=== PATIENT | female | born 1940 | race Caucasian/White ===

== ENCOUNTER 2017-06-11 06:27 | Day surgery (SDC) | payer MEDICARE, OTHER ==
[~2017-06-11] VITALS: Ht 147.3 cm; Wt 56.9 kg
[2017-06-11] VITALS (9 sets, daily range): BP systolic 103–121; BP diastolic 47–63; PULSE 80–92; RESP 10–16; O2SAT 93–99
[~2017-06-11 06:27] MED LIST: Clindamycin 900 mg/50 mL D5W IV SCH; MULT-1018 PO; TAMO10TA4 PO; calcium
[2017-06-11] MEDS ORDERED: Phenylephrine/NS 100 mCg/mL 10 mL Syringe IVPUSH ONE (06:28)
[2017-06-11] MEDS ORDERED: Propofol 10,000 mCg/mL 20 mL Inj ONE (06:28)
[2017-06-11] MEDS ORDERED: Glycopyrrolate 0.2 MG/ML 1mL Inj ONE (06:28)
[2017-06-11] MEDS ORDERED: fentaNYL-PF 50 mCg/mL 2 mL Inj ONE (06:28)
[2017-06-11] MEDS ORDERED: EPHEDrine/NS 5 mg/mL 5 mL Syringe ONE (06:28)
[2017-06-11] MEDS ORDERED: Neostigmine 1 mg/mL 10 mL Inj ONE (06:28)
[2017-06-11] MEDS ORDERED: HYDROmorphone 1 mg/mL Inj ONE (06:28)
[2017-06-11] MEDS ORDERED: Ondansetron 2 mg/mL 2 mL Inj ONE (06:28)
[2017-06-11] MEDS ORDERED: Rocuronium 10 mg/mL 5 mL Inj ONE (06:28)
[2017-06-11] MEDS: Lactated Ringer's 1,000 ML IV SCH ×2 (06:42→08:29)
[2017-06-11] MEDS ORDERED: Lactated Ringer's 500 ML IV PRN (08:01)
[2017-06-11] MEDS ORDERED: Lactated Ringer's 1,000 ML IV SCH (08:01)
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
[2017-06-11] MEDS ORDERED: Phenylephrine 10,000 mCg/mL Inj IVPUSH PRN (08:05)
[2017-06-11] MEDS ORDERED: HYDROmorphone 1 mg/mL Inj IVPUSH PRN (08:05)
[2017-06-11] MEDS ORDERED: Dexamethasone 4 mg/mL Inj IVPUSH PRN (08:05)
[2017-06-11] MEDS ORDERED: EPHEDrine Sulfate 50 mg/mL Inj IVPUSH PRN (08:05)
[2017-06-11] MEDS ORDERED: Ondansetron 2 mg/mL 2 mL Inj IVPUSH PRN (08:05)
[2017-06-11] MEDS ORDERED: Bacitracin 50,000 unit Inj ONE (08:23)
[2017-06-11] MEDS ORDERED: Bacitracin 50,000 unit Inj IRRIGATION ONE (08:59)
[2017-06-11] MEDS: fentaNYL-PF 50 mCg/mL 2 mL Inj IVPUSH PRN ×2 (10:30→10:42)
[2017-06-11] MEDS ORDERED: oxyCODONE-Acetamin 5-325 mg Tablet PO PRN (11:05)
--- NOTE | 2017-06-11 17:50 | PCM.ANEP1 ---
Post Anesthesia PACU Phase 1 Assessment Vital Signs Vital Signs Date Time Temp Pulse Resp B/P Pulse Ox O2 Delivery O2 Flow Rate FiO2 06/11/17 11:52 86 16 121/57 99 Room Air 06/11/17 11:05 36.5 81 11 104/52 99 Room Air 06/11/17 11:00 80 14 107/50 99 Room Air 06/11/17 10:45 36.5 82 10 103/47 93 Room Air 06/11/17 10:35 86 15 111/55 94 Room Air 06/11/17 10:30 88 14 111/54 95 Room Air 06/11/17 10:25 92 12 109/55 96 Room Air 06/11/17 10:20 36.4 88 11 111/48 96 Room Air Level of Alertness: Awake, talking Pain: No Nausea or Vomiting: No CV Function & Hydration Stable: Yes Airway Device: None Oxygen Delivery: Room Air Lungs: Normal Air Movement PACU Phase 2 Assessment Complications: No Follow up Care: N/A Patient Instructions Provided: N/A Fazal Delaney MD Jun 11, 2017 17:50
--- NOTE | 2017-06-12 16:42 | OP ---
[address] [address] OPERATIVE REPORT PATIENT: MELLISSA RAYGOZA : 1940 MR#: [id number] ADMIT: 06/11/2017 JOB ID: [id number] DATE OF SURGERY: 06/11/2017 PREOPERATIVE DIAGNOSIS(ES): 1. History of right breast cancer, status post breast reconstruction with casino manager placement. 2. Ruptured left tissue casino manager. 3. Significant reconstruction deformity of the left breast. POSTOPERATIVE DIAGNOSIS(ES): 1. History of right breast cancer, status post breast reconstruction with casino manager placement. 2. Ruptured left tissue casino manager. 3. Significant reconstruction deformity of the left breast. PROCEDURE: 1. Removal of ruptured right breast tissue casino manager. 2. Placement of right breast tissue casino manager. 3. Revision of breast reconstruction of the left breast with placement of fat graft in the medial breast defect. 4. Fat grafting and obtaining a fat graft. SURGEON: Anmol Stewart MD. POLYMER ENGINEER: None. ANESTHESIA: General anesthesia. COMPLICATIONS: None apparent. ESTIMATED BLOOD LOSS: 20 cc. DRAINS: None. SPECIMEN: None. INDICATIONS FOR PROCEDURE: This is a 76-year-old female patient with a history of right breast cancer, status post bilateral mastectomy with tissue casino manager placement. The left tissue casino manager has been ruptured for several months. The patient also has significant deformity of the left medial breast due to thin soft tissue flap and over-dissection during the mastectomy. At this point, replacement of the left tissue casino manager is indicated. I will also attempt to restore some of the normal contour in the left medial breast with fat grafting. PROCEDURE AND FINDINGS: The patient was identified in the preoperative area. Surgical site was marked. I turned my attention to the right breast and an area of excess breast tissue on the lateral breast was marked. I also marked an area of excess breast tissue on the left lateral breast. The area of deformity of the left medial breast was also marked. The patient was then taken back to the operating room and placed supine on the operating table. Appropriate time-outs were taken. General anesthesia was induced smoothly. The patient was then prepped and draped in the usual sterile manner. I first turned my attention to the right lateral breast. An ellipse was made around the previously marked excess breast tissue and axillary skin. This was deepened down into the subcutaneous tissue with a #10 blade. I then used electrocautery to excise the excess soft tissue in this area, which consists of ellipse of skin and a small amount of subcutaneous tissue. I did not excise any extensive tissue as this area was irradiated and I did not want to place any undue tension. The incision was made hemostatic with electrocautery. The incision was reapproximated first with a layer of 3-0 Monocryl deep dermal suture, followed by 4-0 Monocryl running subcuticular suture. The excess tissue was stored on the side. I then turned my attention to the left breast. An ellipse was made with a #10 blade that encompasses the excess tissue on the lateral aspect of the breast including the lateral end of the mastectomy incision. This was done with a #10 blade. I then deepened the incision down to the underlying periprosthetic capsule with electrocautery. The ellipse of skin and soft tissue was removed off of the periprosthetic capsule and AlloDerm. This was again stored to the side. I then made an incision with electrocautery through the AlloDerm on the lateral aspect of the breast reconstruction. This allowed me to remove the previous ruptured tissue casino manager. The pocket was irrigated with copious amounts of antibiotic solution. An Allergan style MV133, 14 cm tissue casino manager was then obtained. Air was removed. It was then soaked in antibiotic solution. It was then placed into the casino manager pocket. At this point, the tissue casino manager was filled to 200 cc. The incision on the periprosthetic capsule and on the AlloDerm was then reapproximated using several 2-0 PDS [id number] sutures. Once this has been done, the tissue casino manager was expanded to 300 cc. At this point, the lateral breast incision was temporarily stapled together. It was noted that patient continues to have some excess tissue in this area. An ellipse was then made encompassing the excess tissue. Again incision was made with a #10 blade. It was then deepened down to the AlloDerm and periprosthetic capsule with electrocautery and removed. Once this has been done, a layer of 3-0 Monocryl evzkxo-jd-lpnaj sutures were then used to reapproximate the deep soft tissue and some of the split muscle. A layer of 3-0 Monocryl suture was then further used to reapproximate the subcutaneous tissue. A layer of 3-0 Monocryl deep dermal sutures were then placed, followed by 4-0 Monocryl running subcuticular suture. I then turned my attention to the left medial breast. Her previous mastectomy incision was opened for approximately 4 cm at its most medial end. The incision was deepened down to the underlying pectoralis major muscle. The soft tissue was then elevated off the muscle. The soft tissue was elevated over the entire area of the deformity. I then continued to elevate the soft tissue for approximately 1-2 cm beyond the area of deformity. I also elevated some soft tissue off of the breast reconstruction medially. This allowed the soft tissue to be more mobile and pliable. At this point, I turned my attention to the excess soft tissue that was excised. The skin was trimmed off the subcutaneous tissue. The fatty tissue was then placed into the dissected pocket under the medial breast to take off the space that has been created with elevation of this tissue. Three pieces of fat that measured approximately 3-4 cm x 2 cm wide and 1 cm thick were placed into the pocket. The incision was then reapproximated first with a layer of 3-0 Monocryl deep dermal suture, followed by 4-0 Monocryl running subcuticular suture. The patient tolerated the procedure well. Needle count, sponge count, instrument counts were correct at end of the procedure. The patient was extubated and transported to recovery in stable condition. Final casino manager fill on the left side was 300 cc.
[2017-06-18] MEDS ORDERED: TAMO20TA4 PO (16:38)
[2017-06-22] MEDS ORDERED: TAMO10TA4 PO (08:44)
== END 2017-06-11 23:59 | disposition home or self-care (01) ==
LOC: SAS 06:27
PROVIDERS: ATTEND Plastic Surgery
DX: C50.911 Malignant neoplasm of unspecified site of right female breast (principal); Z42.1 Encounter for breast reconstruction following mastectomy; Z90.13 Acquired absence of bilateral breasts and nipples; M81.0 Age-related osteoporosis without current pathological fracture; Z92.3 Personal history of irradiation
CPT/HCPCS: 11971; 19357; 19380; 20926; J1170; J1885; J2370; J2405; J2704; J2710; J3010; J3490; J7120; L8600